=== PATIENT | male | born 1975 | race African-American/Black ===

== ENCOUNTER 2017-08-23 12:57 | Emergency (ER) | payer SELFPAY ==
[~2017-08-23] VITALS: Ht 188 cm; Wt 82.7 kg
[2017-08-23 13:43] LABS: HEMOGLOBIN 14.2 G/DL (12.5-16.6); MCV 87.9 FL (86-99); PLATELET COUNT 288 K/uL (156-360); RBC DIS.WIDTH-CV 12.1 % (11.8-14.6); RBC DIS.WIDTH-SD 39.1 % (39-53); RED BLOOD COUNT 4.89 M/uL (4.00-5.50); WHITE BLOOD COUNT 6.3 K/uL (4.1-10.2)
[2017-08-23 13:51] LABS: CHLORIDE 102 mEq/L (99-109); POTASSIUM 3.9 mEq/L (3.7-5.4); SODIUM 138 mEq/L (136-147)
[2017-08-23 13:55] LABS: TOTAL BILIRUBIN 0.7 mg/dL (0.0-1.0)
[2017-08-23 13:58] LABS: AST (GOT) 20 IU/L (2-34)
[2017-08-23 14:03] LABS: ALBUMIN 4.5 g/dL (3.2-4.8)
[2017-08-23 14:06] LABS: GLUCOSE 128 mg/dL (70-99)
[2017-08-23 14:09] LABS: ALKALINE PHOSPHATASE 56 IU/L (3-129)
[2017-08-23 14:10] LABS: UREA NITROGEN (BUN) 9 mg/dL (9-23)
[2017-08-23 14:12] LABS: ALT (GPT) 15 IU/L (3-49); GFR ESTIMATE (CALCULATED) > 59 mL/min/ (58.99-99999)
[2017-08-23 14:13] LABS: LIPASE 37 U/L (1.0-51.0)
[2017-08-23] MEDS ORDERED: ZOFRAN4 MG PO (14:55)
[2017-08-23] MEDS ORDERED: PERCOCET 5/31 TABLET PO (14:56)
[2017-08-23] MEDS ORDERED: FLOMAX0.4 MG PO (15:02)
[2017-08-23] MEDS ORDERED: MOTRIN600 MG PO (15:02)
[2017-08-23 15:10] LABS: APPEARANCE CLEAR ((CLEAR)); BILIRUBIN NEGATIVE; BLOOD LARGE; COLOR YELLOW ((YELLOW)); GLUCOSE (STRIP) NEGATIVE; KETONES NEGATIVE; LEUKOCYTES NEGATIVE; NITRITE NEGATIVE; PROTEIN (STRIP) NEGATIVE; SPECIFIC GRAVITY 1.006 (1.000-1.030); UROBILINOGEN 0.2 MG/DL (0.2-1.0)
[2017-08-23 15:13] LABS: BACTERIA RARE /HPF; EPITHELIAL CELLS RARE /HPF; MUCUS TRACE /LPF; RED BLOOD CELLS TNTC /HPF (0-5); UCUL ADDED? YES; WHITE BLOOD CELLS 0-5 /HPF (0-5)
[2017-08-23 15:29] VITALS: BP 153/99
== END 2017-08-23 15:32 | disposition home or self-care (01) ==
LOC: EDBD 12:57 → EME 12:57
PROVIDERS: Physician Assistant
DX: N20.0 Calculus of kidney (principal); K21.9 Gastro-esophageal reflux disease without esophagitis; Z87.442 Personal history of urinary calculi
CPT/HCPCS: 74176; 80053; 81003; 83690; 85027; 87086; 99281; 99284; J1885